=== PATIENT | female | born 2000 | race Caucasian/White ===

== ENCOUNTER 2020-10-01 21:58 | Emergency (ER) | payer MEDICAID, SELFPAY ==
[2020-10-01 22:13] VITALS: BP 107/71; PULSE 113; RESP 14; TEMP 38.2; O2SAT 99; BMI 20.7
--- NOTE | 2020-10-01 22:42 | ED_ITS ---
HPI - Female Genitourinary General: Chief complaint: Urogenital-Female Stated complaint: SEEN AT CLINIC EARLIER, PAIN WORSE, STARTED BLEED Time Seen by Provider: 10/01/20 22:11 Source: patient Mode of arrival: ambulatory Limitations: no limitations History of Present Illness: HPI Narrative: 20-year-old female patient presents to the emergency department with complaints of fever and lower abdominal and right flank pain. She reports 3 to 4-day history of dysuria. History of urinary tract infections with previous infection 3 to 4 months ago. Last menstrual period 2020. Reports menstrual cycles are normally regular. She went to her primary care physician's office today due to lower abdominal pain, fever and urinary symptoms. She was treated for urinary tract infection with Cipro. She states has received 2 doses of the antibiotic without improvement. She remains with fever, reports occasional nausea, she was tested for Covid today and results remain pending. She denies cough congestion. She also reports abnormal vaginal discharge that started today. She states that it was the starting of her menstrual cycle, is only present when she wipes. MD elicited complaint: dysuria, UTI , vaginal discharge and pelvic pain Pertinent past history: recurrent UTIs Onset (ago): day(s) (3-4) Location of symptoms: suprapubic and other (rt flank) Severity: moderate Female Urogenital Radiation: Suprapubic Consistency: intermittent and progressively worsening Vaginal discharge: yellow Vaginal bleeding: scant Urinary symptoms: Dysuria, Flank Pain, Foul Smelling Urine and Frequency Exacerbating factors: urination Associated symptoms: Reports abdominal pain, fevers/chills, nausea, vaginal bleeding and vaginal discharge; Deny headache(s) Treatment prior to arrival: other (Antibiotics) Sexual activity: Yes Possible : unsure if Review of Systems General: Reports: 10 or more systems reviewed and unremarkable except in HPI and below Const: Denies: fever(s), chills or diaphoresis Eyes: Denies: blurry vision or eye redness ENMT: Denies: throat pain, dental pain or disequilibrium Card: Denies: chest pain, palpitations or irregular heart rhythm Resp: Denies: dyspnea, productive cough, non-productive cough or wheezing GI: Reports: abdominal pain and nausea; Denies: vomiting, hematemesis, heartburn, diarrhea, constipation, bloating, pain on defecation, rectal itching or change in stool character : Reports: flank pain, dysuria, urinary urgency, vaginal bleeding, vaginal discharge, irregular period and pelvic pain; Denies: urinary incontinence Musc: Denies: neck pain, back pain, joint pain or joint warmth Skin/Breast: Denies: rash or pruritus Neuro: Denies: headache(s), weakness in extremities or behavioral changes Psych: Denies: anxiety or depression Get/Lymph: Denies: easy bruising PFSH ED PFSH: Medical History UTI (urinary tract infection) Physical Exam Const: COMMON NORMALS: no acute distress, patient oriented x3, healthy appearing, alert and well nourished GENERAL APPEARANCE: cooperative, well kempt, well developed and well hydrated NUTRITIONAL APPEARANCE: thin ORIENTATION/CONSCIOUSNESS: Yes awake, Yes oriented to person, Yes oriented to place and Yes oriented to time HENMT: COMMON NORMALS: normocephalic, atraumatic, Normal external nose present and moist oral mucous membranes HEAD & SCALP: normal to inspection, normocephalic and atraumatic FACE & SINUS: normal facial exam and face symmetric NOSE: Normal external nose present MOUTH: Normal oral and palatal mucosa present, lip normal and tongue normal Eye: COMMON NORMALS: Equal, round and reactive pupils present and EOMs intact bilaterally GENERAL EYE: appearance normal, both eyes and all related structures PUPIL: Yes Equal, round and reactive pupils present Neck/C-Spine: COMMON NORMALS: full ROM, no lymphadenopathy, supple and no meningeal signs GENERAL: Yes normal visual inspection and Yes trachea midline CERVICAL SPINE: Yes cervical ROM normal Lymph: LYMPHATIC: no lymphadenopathy noted Chest: COMMONS NORMALS: normal inspection of the chest and normal palpation of entire chest wall Resp: COMMON NORMALS: normal respiratory effort, No retractions, No use of accessory muscles and clear to auscultation bilaterally EFFORT & INSPECTION: Yes able to speak in complete sentences, No labored and No audible wheezes AUSCULTATION: clear to auscultation bilaterally Cardio: COMMON NORMALS: regular rate, regular rhythm, S1 normal heart sound present, S2 normal heart sound present and Peripheral pulses 2+ throughout RATE: regular rate and tachycardic RHYTHM: regular rhythm HEART SOUNDS: S1 normal heart sound present and S2 normal heart sound present PERIPHERAL PULSES: Peripheral pulses 2+ throughout GI: COMMON NORMALS: Normal to inspection, nondistended, normoactive bowel sounds present and Soft to palpation INSPECTION: Yes normal to inspection, No abdominal wall ecchymosis, No abdominal distension and No central obesity AUSCULTATION: Yes normoactive bowel sounds PALPATION: Yes Soft to palpation, No Firmness to palpation present (GI), Yes Tenderness to palpation present (GI) Details: other (suprapublic) and No Rigid due to palpation : COMMON NORMALS: Yes normal external appearance, Yes normal appearance of the vagina, Yes normal bimanual exam and Yes No adnexal tenderness BLADDER/KIDNEY EXAM: Yes bladder normal to palpation and Yes CVA tenderness on the right EXTERNAL FEMALE EXAM: Yes normal appearance of the urethra SPECULUM EXAM - VAGINA: Yes vaginal bleeding and No tissue present in vagina SPECULUM EXAM - CERVIX: Yes Cervical os closed, Yes mucoid cervix, Yes Abnormal cervical discharge present bloody and clear and Yes Cervical tenderness present BIMANUAL EXAM - VAGINA & UTERUS: Yes normal bimanual exam, Yes cervical motion tenderness, Yes Cervical tenderness present, Yes bladder normal to palpation, Yes uterine size normal and Yes uterine mobility normal BIMANUAL EXAM - ADNEXA, OTHER: Yes normal adnexae OB/EXTERNAL & SPECULUM: vaginal bleeding; no tissue noted in vagina Back/Pelvis: COMMON NORMALS: thoracic and lumbar spine normal to inspection, no thoracic nor lumbar tenderness and thoraco-lumbar ROM normal Extremity: COMMON NORMALS: normal to inspection, full ROM, capillary refill normal, no clubbing, cyanosis or edema and no pedal edema GENERAL: Yes normal exam except as noted Neuro: COMMON NORMALS: patient oriented x3 and no focal motor deficits SENSORIUM/ORIENTATION: Yes alert, Yes oriented to person, Yes oriented to place and Yes oriented to time MENINGEAL SIGNS: Yes no meningeal signs SPEECH: speech normal GAIT: Yes Normal gait present MOTOR EXAM: 5/5 motor strength present throughout Psych: COMMON NORMALS: mental status grossly normal, Normal thought process present and cooperative APPEARANCE: Yes well kempt ACTIVITY/MOTOR BEHAVIOR: Yes appropriate eye contact THOUGHT PROCESS: Normal thought process present Skin: COMMON NORMALS: no rashes or lesions noted and turgor normal GENERAL SKIN EXAM: no rashes or lesions noted and turgor normal Course Vital Signs: Vital signs: Vital Signs Temperature 100.7 F H 10/01/20 22:13 Pulse Rate 101 H 03/11/21 00:53 Respiratory Rate 14 10/01/20 22:13 Blood Pressure 107/71 10/01/20 22:13 Pulse Oximetry 97 10/02/20 00:53 MDM - Female MDM Narrative: Medical decision making narrative: 20-year-old female patient presents to the emergency department with several day history of dysuria. Reports onset of fever and chills and not feeling well today. Prescribed Cipro by her primary care for urinary tract infection. She received 2 doses with no improvement. Urinalysis with white blood cells, red blood cells and leukoesterase, CT abdomen pelvis renal stone protocol completed secondary to possible kidney stone or other abdominal etiology due to right flank pain she was experiencing. Right kidney revealed perinephric stranding concerning for pyelonephritis. She received first dose of Rocephin here in the ED. She has not exhibited vomiting. She was able to tolerate p.o. fluids. CBC without elevation of white blood count. Chemistry did reveal slight hypokalemia, potassium replaced with 40 mEq of KCl. hCG was negative. Pelvic exam completed secondary to complaint of lower pelvic pain. Cervical motion tenderness present, she was treated for chlamydia/gonorrhea with 1 g of a azithromycin and Rocephin. She did not want to stay in the hospital, she has requested to go home. She did not exhibit vomiting during her stay, she was advised to follow- up with her primary care provider in 2 to 3 days to ensure she is improving. She is advised if she developed nausea vomiting with use of Zofran, she would need to return to the ED. Lab Data: Labs: Lab Results 10/01/20 10/01/20 10/01/20 Range/Units 22:10 22:50 22:50 WBC 11.4 (4.5-13.0) 10^3/ uL RBC 4.69 (4.1-5.3) 10^6/u L Hgb 13.9 (11.5-15.3) g/dL Hct 41.7 (37.0-47.0) % MCV 88.9 (81-99) fL MCH 29.6 (28.0-34.0) pg MCHC 33.3 (30.0-36.0) g/dL RDW 12.5 (12.1-15.1) % Plt Count 178 (130-400) 10^3/c mm MPV 9.8 (7.4-10.4) fL Neut % (Auto) 76.9 % Lymph % (Auto) 10.7 % Amador % (Auto) 11.3 % Eos % (Auto) 0.3 % Baso % (Auto) 0.3 % Neut # (Auto) 8.75 H (1.8-8.0) 10^3/u L Lymph # (Auto) 1.2 L (1.5-6.5) 10^3/u L Amador # (Auto) 1.3 H (0.2-0.9) 10^3/u L Eos # (Auto) 0.0 (0.0-0.8) 10^3/u L Baso # (Auto) 0.0 (0.0-0.1) 10^3/u L Nucleated RBC % (a uto) 0 % Nucleated RBCs # 0.0 /100WBC Sodium 135 L (136-145) mmol/L Potassium 3.3 L (3.5-5.1) mmol/L Chloride 99 (98-107) mmol/L Carbon Dioxide 26 (22-29) mmol/L Anion Gap 13.3 (5-19) BUN 4 L (6-20) mg/dL Creatinine 0.8 (0.5-0.9) mg/dL GFR Calculation 91.4 (90-130) mL/min Glucose 93 (65-115) mg/dL Calculated Osmolal ity 277 L (285-295) mOsm/k g Calcium 8.1 L (8.5-10.5) mg/dL Total Bilirubin 0.3 (0.15-1.2) mg/dL AST 19 (0-32) U/L ALT 22 (0-33) U/L Alkaline Phosphata se 67 (35-105) IU/L Total Protein 6.8 (6.6-8.7) g/dL Albumin 3.6 (3.5-5.2) g/dL Globulin 3.2 (1.3-4.6) g/dL HCG, Qual (Negative) Urine Color Yellow (Yellow) Urine Appearance Sl hazy (CLEAR) Urine pH 8 H (5-7) Ur Specific Gravit y 1.005 (1.005-1.030) Urine Protein Neg (Negative) Urine Glucose (UA) Norm (Normal) Urine Ketones Negative (Negative) Urine Blood 3+ H (Negative) Urine Nitrate Negative (Negative) Urine Bilirubin Neg (Negative) Prot Sulfosalicyli c Acd Negative (Negative) Urine Urobilinogen Norm (Negative) mg/dL Ur Leukocyte Keerthi ase 2+ H (Negative) Urine RBC 0-4 H (0-2) /hpf Urine WBC 40-55 H (0-5) /hpf Ur Squamous Epith Cells 10-15 H (0-5) /hpf Amorphous Sediment Not Reportable Urine Bacteria 1+ H (NONE) /hpf 10/01/20 Range/Units 22:50 WBC (4.5-13.0) 10^3/ uL RBC (4.1-5.3) 10^6/u L Hgb (11.5-15.3) g/dL Hct (37.0-47.0) % MCV (81-99) fL MCH (28.0-34.0) pg MCHC (30.0-36.0) g/dL RDW (12.1-15.1) % Plt Count (130-400) 10^3/c mm MPV (7.4-10.4) fL Neut % (Auto) % Lymph % (Auto) % Amador % (Auto) % Eos % (Auto) % Baso % (Auto) % Neut # (Auto) (1.8-8.0) 10^3/u L Lymph # (Auto) (1.5-6.5) 10^3/u L Amador # (Auto) (0.2-0.9) 10^3/u L Eos # (Auto) (0.0-0.8) 10^3/u L Baso # (Auto) (0.0-0.1) 10^3/u L Nucleated RBC % (a uto) % Nucleated RBCs # /100WBC Sodium (136-145) mmol/L Potassium (3.5-5.1) mmol/L Chloride (98-107) mmol/L Carbon Dioxide (22-29) mmol/L Anion Gap (5-19) BUN (6-20) mg/dL Creatinine (0.5-0.9) mg/dL GFR Calculation (90-130) mL/min Glucose (65-115) mg/dL Calculated Osmolal ity (285-295) mOsm/k g Calcium (8.5-10.5) mg/dL Total Bilirubin (0.15-1.2) mg/dL AST (0-32) U/L ALT (0-33) U/L Alkaline Phosphata se (35-105) IU/L Total Protein (6.6-8.7) g/dL Albumin (3.5-5.2) g/dL Globulin (1.3-4.6) g/dL HCG, Qual Negative (Negative) Urine Color (Yellow) Urine Appearance (CLEAR) Urine pH (5-7) Ur Specific Gravit y (1.005-1.030) Urine Protein (Negative) Urine Glucose (UA) (Normal) Urine Ketones (Negative) Urine Blood (Negative) Urine Nitrate (Negative) Urine Bilirubin (Negative) Prot Sulfosalicyli c Acd (Negative) Urine Urobilinogen (Negative) mg/dL Ur Leukocyte Keerthi ase (Negative) Urine RBC (0-2) /hpf Urine WBC (0-5) /hpf Ur Squamous Epith Cells (0-5) /hpf Amorphous Sediment Urine Bacteria (NONE) /hpf Imaging Data: Other Xray: Radiologist's impression: [employer] [address] [address] Scan Report Signed Patient: Koffi Haro Unit #: [id number] : 2000 Age/Sex: 20 / F ADM Date: 10/01/20 Loc: ER Room/Bed: Attending Dr: Ordering Provider/Ordering MD: Avril Benson Date of Service: 10/01/20 Procedure(s): CT kidney stone [id number] Accession Number(s): [id number] Report Number: [id number] PROCEDURE INFORMATION: Exam: CT Abdomen And Pelvis Without Contrast Exam date and time: 10/01/2020 11:17 PM Age: 20 years old Clinical indication: Abdominal pain; Patient HX: Right flank pain x 3 days; Additional info: RT flank pain/fever TECHNIQUE: Imaging protocol: Computed tomography of the abdomen and pelvis without contrast. Radiation optimization: All CT scans at this facility use at least one of these dose optimization techniques: automated exposure control; mA and/or kV adjustment per patient size (includes targeted exams where dose is matched to clinical indication); or iterative reconstruction. COMPARISON: US OB >14 Weeks [id number] 11/14/2017 10:40 AM RADIATION DOSE METRICS: Total DLP (mGy-cm): 569.58 FINDINGS: Lungs: The lung bases are clear. No effusion Liver: Normal. No mass. Gallbladder and bile ducts: No wall thickening, pericholecystic fluid or stones. Pancreas: Normal. No ductal dilation. Spleen: Normal. No splenomegaly. Adrenal glands: Normal. No mass. Kidneys and ureters: Enlargement of the right kidney with perinephric fat stranding. Stomach and bowel: Unremarkable. No obstruction. No mucosal thickening. Appendix: No evidence of appendicitis. Intraperitoneal space: Tiny amount of free fluid in the pelvis. Vasculature: Unremarkable. No abdominal aortic aneurysm. Lymph nodes: Unremarkable. No enlarged lymph nodes. Urinary bladder: Unremarkable as visualized. Reproductive: Unremarkable as visualized. Bones/joints: Unremarkable. No acute fracture. Soft tissues: Unremarkable. CT/CT kidney stone [id number] IMPRESSION: Enlargement of the right kidney with perinephric fat stranding, concerning for pyelonephritis. Radiation Dose CTDIVOL = (mGy): DLP = 569.58 (mGy-cm) Dictated By: Edson Foy Signed By: Edson Foy Signed Date/Time: 10/02/20 0002 DD/ 0001 Discharge Plan Discharge Patient Disposition: Home Clinical Impression: Acute flank pain UTI (urinary tract infection) Qualifiers: Urinary tract infection type: acute pyelonephritis Qualified Code(s): N10 - Acute pyelonephritis Condition: Stable Prescriptions: New cefdinir 300 mg capsule 300 mg PO BID 10 Days Qty: 20 RF: 0 hydrocodone-acetaminophen 5-325 mg tablet 1 tab PO Q4H PRN (Reason: pain) Qty: 7 RF: 0 Zofran 4 mg tablet 4 mg PO Q4H 5 Days Qty: 14 RF: 0 Discontinued ciprofloxacin HCl 500 mg tablet 500 mg PO BID 5 Days Qty: 10 RF: 0 Discharge Orders: Discharge ED (Routine); Ordered 10/02/20 Ordered By: Avril Benson Referrals: Elvi Wong NP [Primary Care Provider] - Discharge Diet: Usual diet Discharge Activity: Limit activity as instructed Patient Instructions: Urinary Tract Infection in Women (ED), Abdominal Pain (ED), Opioid Safety Activity Restrictions/Additional Instructions: Take antibiotics until gone, even if better Stop Cipro as new antibiotic has been prescribed Return to the emergency department if you develop vomiting or continued fever despite use of Zofran and Omnicef Follow-up with your primary care provider in 2 to 3 days to ensure you are im proving Drink plenty of fluids to remain hydrated May take Tylenol as needed for pain Stand Alone Forms: Work/School Release Coding Level of Care Code ED Ultrasound Spec for [place] Fwd Exam Comprehensive
[2020-10-01 22:59] LABS: Basophils % 0.3 %; Eosinophils % 0.3 %; Hematocrit 41.7 % (37.0-47.0); Hemoglobin 13.9 g/dL (11.5-15.3); Lymphocytes # 1.2 10^3/uL (1.5-6.5); Lymphocytes % 10.7 %; Mean Corpuscular HGB Conc 33.3 g/dL (30.0-36.0); Mean Corpuscular Hemoglobin 29.6 pg (28.0-34.0); Mean Corpuscular Volume 88.9 fL (81-99); Mean Platelet Volume 9.8 fL (7.4-10.4); Monocytes # 1.3 10^3/uL (0.2-0.9); Monocytes % 11.3 %; Neutrophils # 8.75 10^3/uL (1.8-8.0); Neutrophils % 76.9 %; Nucleated Red Blood Cells % 0 %; Platelet Count 178 10^3/cmm (130-400); Red Blood Count 4.69 10^6/uL (4.1-5.3); Red Cell Distribution Width 12.5 % (12.1-15.1); White Blood Count 11.4 10^3/uL (4.5-13.0)
[2020-10-01 23:10] LABS: Add Urine Microscopic? YES; Bacteria Urine 1+ /hpf; Bilirubin Urine Neg (Negative); Blood Urine 3+ (Negative); Glucose Urine UA Norm (Normal); Ketones Urine Negative (Negative); Leukocyte Esterase Urine 2+ (Negative); Nitrate Urine Negative (Negative); Protein Urine Neg (Negative); RBC Urine 0-4 /hpf (0-2); Specific Gravity, Urine 1.005 (1.005-1.030); Sulfosalicylic Acid Urine Negative (Negative); Urine Appearance SL Hazy (CLEAR); Urine Color Yellow (Yellow); Urobilinogen Urine Norm (Negative); WBC Urine 40-55 /hpf (0-5); pH Urine 8 (5-7)
[2020-10-01 23:13] LABS: HCG, Serum Qual Negative (Negative)
--- NOTE | 2020-10-01 23:16 | CTR_ITS ---
PROCEDURE INFORMATION: Exam: CT Abdomen And Pelvis Without Contrast Exam date and time: 10/01/2020 11:17 PM Age: 20 years old Clinical indication: Abdominal pain; Patient HX: Right flank pain x 3 days; Additional info: RT flank pain/fever TECHNIQUE: Imaging protocol: Computed tomography of the abdomen and pelvis without contrast. Radiation optimization: All CT scans at this facility use at least one of these dose optimization techniques: automated exposure control; mA and/or kV adjustment per patient size (includes targeted exams where dose is matched to clinical indication); or iterative reconstruction. COMPARISON: US OB >14 Weeks [id number] 11/14/2017 10:40 AM RADIATION DOSE METRICS: Total DLP (mGy-cm): 569.58 FINDINGS: Lungs: The lung bases are clear. No effusion Liver: Normal. No mass. Gallbladder and bile ducts: No wall thickening, pericholecystic fluid or stones. Pancreas: Normal. No ductal dilation. Spleen: Normal. No splenomegaly. Adrenal glands: Normal. No mass. Kidneys and ureters: Enlargement of the right kidney with perinephric fat stranding. Stomach and bowel: Unremarkable. No obstruction. No mucosal thickening. Appendix: No evidence of appendicitis. Intraperitoneal space: Tiny amount of free fluid in the pelvis. Vasculature: Unremarkable. No abdominal aortic aneurysm. Lymph nodes: Unremarkable. No enlarged lymph nodes. Urinary bladder: Unremarkable as visualized. Reproductive: Unremarkable as visualized. Bones/joints: Unremarkable. No acute fracture. Soft tissues: Unremarkable. CT/CT kidney stone [id number] IMPRESSION: Enlargement of the right kidney with perinephric fat stranding, concerning for pyelonephritis. Radiation Dose CTDIVOL = (mGy): DLP = 569.58 (mGy-cm)
[2020-10-01 23:27] LABS: Alanine Aminotransferase 22 U/L (0-33); Albumin Level 3.6 g/dL (3.5-5.2); Alkaline Phosphatase 67 IU/L (35-105); Anion Gap 13.3 (5-19); Aspartate Amino Transferase 19 U/L (0-32); Blood Urea Nitrogen 4 mg/dL (6-20); Calcium 8.1 mg/dL (8.5-10.5); Carbon Dioxide 26 mmol/L (22-29); Chloride 99 mmol/L (98-107); Globulin 3.2 g/dL (1.3-4.6); Glomerular Filtration Rate 91.4 mL/min (90-130); Glucose 93 mg/dL (65-115); Osmolality Calculated 277 mOsm/kg (285-295); Potassium 3.3 mmol/L (3.5-5.1); Sodium 135 mmol/L (136-145); Total Bilirubin 0.3 mg/dL (0.15-1.2); Total Protein 6.8 g/dL (6.6-8.7)
[2020-10-01] MEDS: sodium chloride 0.9% 500 ML 999 ML IV (23:29)
[2020-10-01] MEDS: cefTRIAXone 1,000 MG in sodium chloride 0.9% (plus) 50 ML 100 MG IV (23:30)
[2020-10-01] MEDS: azithromycin 250 mg Tablet 1000 MG PO (23:31)
[2020-10-02] MEDS: sodium chloride 0.9% 500 ML 999 ML IV (00:25)
[2020-10-02] MEDS: ketorolac 30 mg/mL INJ 15 MG IVP (00:25)
[2020-10-02] MEDS: ondansetron 4 MG Tablet PO (00:47)
[2020-10-02] MEDS: potassium chloride ER 20 mEq Tablet 40 MEQ PO (00:48)
[2020-10-02] MEDS: HYDROcodone-acetaminophen 5-325 mg Tablet 1 TAB PO (00:48)
[2020-10-02 00:52] VITALS: PULSE 114; O2SAT 97
[2020-10-02 00:53] VITALS: PULSE 101; O2SAT 97
--- NOTE | 2020-10-03 08:46 | PC.NURSE ---
left message for pt to call ER and get test results
== END 2020-10-02 00:56 | disposition home or self-care (01) ==
PROVIDERS: Emergency Provider Nurse Practitioner Family; PCP Nurse Practitioner Family
DX: N10 Acute pyelonephritis (principal); Z87.440 Personal history of urinary (tract) infections
CPT/HCPCS: 74176; 80053; 81000; 81001; 81025; 84703; 85025; 87210; 87491; 87591; 87635; 87661; 96365; 96375; 99284; E0352; J0696; J1885; J7040; Q0144; Q0162

== ENCOUNTER 2021-11-13 13:24 | Emergency (ER) | payer MEDICAID, SELFPAY ==
[2021-11-13 13:57] VITALS: BP 124/65; PULSE 72; RESP 16; TEMP 36.4; O2SAT 100; BMI 20.3
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
[2021-11-13 16:12] VITALS: BP 180/67; PULSE 89; RESP 20; O2SAT 98
== END 2021-11-13 16:10 | disposition home or self-care (01) ==
PROVIDERS: Emergency Provider Physician Assistant
DX: S00.83XA Contusion of other part of head, initial encounter (principal); Y04.2XXA Assault by strike against or bumped into by another person, initial encounter
CPT/HCPCS: 70450; 70486; 70491; 72072; 72100; 99282; Q9967

== ENCOUNTER → 2022-12-29 10:22 | Outpatient (BNVA) | payer MEDICAID, SELFPAY | PROVIDERS: Visit Provider Obstetrics & Gynecology | DX: Z34.90 Encounter for supervision of normal pregnancy, unspecified, unspecified trimester (principal) | CPT/HCPCS: 80307; 81000; 85027; 86592; 86762; 86803; 86850; 86900; 87077; 87086; 87184; 87340; 87806 ==

== ENCOUNTER → 2023-01-26 15:10 | Outpatient (BNVA) | payer MEDICAID, SELFPAY | PROVIDERS: Visit Provider Obstetrics & Gynecology | DX: Z34.90 Encounter for supervision of normal pregnancy, unspecified, unspecified trimester (principal) | CPT/HCPCS: 81000 ==

== ENCOUNTER → 2023-02-02 14:28 | Outpatient (BNVA) | payer MEDICAID, SELFPAY | PROVIDERS: Visit Provider Obstetrics & Gynecology | DX: Z36.87 Encounter for antenatal screening for uncertain dates (principal) | CPT/HCPCS: 76805 ==

== ENCOUNTER → 2023-02-09 13:30 | Outpatient (BNVA) | payer MEDICAID, SELFPAY | PROVIDERS: Visit Provider Obstetrics & Gynecology | DX: Z34.90 Encounter for supervision of normal pregnancy, unspecified, unspecified trimester (principal) | CPT/HCPCS: 81000 ==

== ENCOUNTER → 2023-02-22 11:38 | Outpatient (BNVA) | payer MEDICAID, SELFPAY | PROVIDERS: Visit Provider Obstetrics & Gynecology | DX: Z34.80 Encounter for supervision of other normal pregnancy, unspecified trimester (principal) | CPT/HCPCS: 81000; 82950; 85025 ==

== ENCOUNTER → 2023-03-08 10:47 | Outpatient (BNVA) | payer MEDICAID, SELFPAY | PROVIDERS: Visit Provider Obstetrics & Gynecology | DX: Z34.80 Encounter for supervision of other normal pregnancy, unspecified trimester (principal) | CPT/HCPCS: 81000 ==

== ENCOUNTER → 2023-03-22 10:59 | Outpatient (BNVA) | payer MEDICAID, SELFPAY | PROVIDERS: Visit Provider Obstetrics & Gynecology | DX: Z34.80 Encounter for supervision of other normal pregnancy, unspecified trimester (principal) | CPT/HCPCS: 81000 ==

== ENCOUNTER → 2023-04-06 10:17 | Outpatient (BNVA) | payer MEDICAID, SELFPAY | PROVIDERS: Visit Provider Obstetrics & Gynecology | DX: Z34.80 Encounter for supervision of other normal pregnancy, unspecified trimester (principal) | CPT/HCPCS: 81000; 87081 ==

== ENCOUNTER → 2023-04-11 08:40 | Outpatient (BNVA) | payer MEDICAID, SELFPAY | PROVIDERS: Visit Provider Obstetrics & Gynecology | DX: Z34.80 Encounter for supervision of other normal pregnancy, unspecified trimester (principal) | CPT/HCPCS: 76816; 76820; 81000 ==

== ENCOUNTER 2023-04-15 20:23 | Outpatient (CLI) | payer MEDICAID, SELFPAY ==
[2023-04-15 20:15] VITALS: BMI 24.5
[2023-04-15 20:40] VITALS: BP 120/55; PULSE 84; TEMP 36.1
[2023-04-15 21:00] VITALS: BP 115/58; PULSE 77
== END 2023-04-15 21:11 | disposition home or self-care (01) ==
LOC: OPOB 20:23 → OBGYN 20:24
PROVIDERS: Visit Provider Obstetrics & Gynecology
DX: O26.899 Other specified pregnancy related conditions, unspecified trimester (principal); Z3A.00 Weeks of gestation of pregnancy not specified
CPT/HCPCS: 59025; 99211

== ENCOUNTER 2023-04-19 09:09 | Inpatient (IN) | payer MEDICAID, SELFPAY ==
[2023-04-19] VITALS (44 sets, daily range): BP systolic 99–136; BP diastolic 51–71; PULSE 62–86; RESP 15–17; TEMP 36.2–36.8; O2SAT 96–98; BMI 24.3
[2023-04-19 11:00] LABS: Mean Corpuscular HGB Conc 33.1 g/dL (30-55); Mean Corpuscular Hemoglobin 29.3 pg (27-33); Mean Corpuscular Volume 88.4 fl (85-98); Mean Platelet Volume 9.5 fL (7.4-10.4); Platelet Count 253 10^3/cmm (157-399); Red Blood Count 3.62 10^6/uL (3.85-5.65); White Blood Count 9.12 10^3/uL (3.29-11.43)
[2023-04-19 11:01] LABS: Basophils % 0.2 %; Eosinophils # 0.1 10^3/uL (0.0-0.8); Eosinophils % 1.2 %; Lymphocytes # 1.8 10^3/uL (0.8-4.8); Lymphocytes % 19.7 %; Monocytes # 0.8 10^3/uL (0.2-0.9); Monocytes % 8.7 %; Neutrophils % 69.1 %; Nucleated Red Blood Cells % 0 %
[2023-04-19] MEDS: dextrose 5%-lactated ringers 1,000 ML 125 ML IV (11:15)
[2023-04-19] MEDS: oxytocin 30 UNIT/500 ML BAG IV (11:15)
--- NOTE | 2023-04-19 14:47 | ANES.PREANE2 ---
Pre-Anesthetic Assessment Height/Weight: Height 1.7 m Weight 70.307 kg Temp Pulse BP O2 Del Method 97.2 F L 75 103/59 Room Air 04/19/23 14:39 04/19/23 14:33 04/19/23 14:33 04/19/23 09:09 Familial anesthetic complications: None Was Beta Carolyn taken within 24 hours: N/A Was Clonidine taken within 24 hours: N/A Last Intake: 08:00 Social Tobacco (7 a day) and No alcohol Exam alert, oriented x 3, clear to auscultation bilaterally and regular rate & rhythm Airway Submandibular: within normal limits Cervical ROM: within normal limits Mallampati: Class III Dentition: full History/ROS No significant history except as noted and No significant complaints Pulmonary None reported CV/HEM Anemia and None reported Urinary Tract Infection Hepatic None reported GI Gastroesophageal Reflux Disease Metabolic None reported Musc/skel None reported Neuropsych None reported Anesthetic Plan ASA status: 2 Anesthesia: Anesthesia Evaluation Medications/Allergies Allergies Allergy/AdvReac Type Severity Reaction Status Date / Time No Known Allergies Allergy Verified 04/15/23 21:06 Current Medications Generic Name Dose Route Start Last Admin Trade Name Freq PRN Reason Stop Dose Admin Dextrose/Lactated Ringer's 1,000 mls @ 125 mls/hr 04/19/23 10:45 04/19/23 11:15 Dextrose 5%-Lactated Ringers IV 125 mls/hr .Q8H ZION Administration Oxytocin 30 unit in 500 mls @ 1 mls/hr 04/19/23 10:45 04/19/23 12:54 Pitocin IV 5 milliunit/min .Q24H ZION 5 mls/hr Titration Protocol 1 MILLIUNIT/MIN PFSH Anesthesia Medical History UTI (urinary tract infection) Family History Grandmother CAD (coronary artery disease) Chronic kidney disease (CKD) Cancer Ovarian Diabetes Father CAD (coronary artery disease) Diabetes Grandfather Diabetes Stroke Denies family history of Psychiatric illness Lung disease Hypertension Female Reproductive History : 2 Data Anesthesia 04/19/23 10:05 Short CBC 04/19/23 Range/Units 10:05 WBC 9.12 (3.29-11.43) 10^3/uL Hgb 10.60 L (11.27-16.99) g/dL Hct 32.0 L (36-47) % MCV 88.4 (85-98) fl Plt Count 253 (157-399) 10^3/cmm Neut % (Auto) 69.1 % Neut # (Auto) 6.30 (1.8-7.7) 10^3/uL Cardiac Studies: No Data to Display
[2023-04-19] MEDS: fentaNYL 50 mcg/mL INJ 2mL IVP (18:36)
[2023-04-19] MEDS: lactated ringers 1,000 ML 999 ML IV (18:56)
--- NOTE | 2023-04-19 20:10 | P.HP_ITS ---
Providers/Chief Complaint Admitting Physician: Dony Garay MD Primary TRAVELING REPRESENTATIVE: Dony Garay MD Chief Complaint: IOL HPI TRAVELING REPRESENTATIVE History of Present Illness April 19, 2023, 1005 OB ADMIT NOTE 22 y.o. LMP unknown Had ob sono done at [facility] by sono April 28, 2023 At 38 w 5 d Admitted for labor induction due to small for gestational age fetus, possible IUGR Fundal height has been lagging behind gestational age OB sono done April 11, 2023 showed growth to be 5% of expected for gestational age Fetus has been reassuring with reactive NST and normal amniotic fluid index no c/o + active movements POBHx: , 5 lbs 15 oz, uncomplicated SHx: + marijuana + cigarettes Present Details : 2 Para: 1 Labs Rubella: Immune RPR: Negative GBS: Negative Medications/Allergies Allergies Allergy/AdvReac Type Severity Reaction Status Date / Time No Known Allergies Allergy Verified 04/15/23 21:06 PFSH TRAVELING REPRESENTATIVE PFSH: Medical History UTI (urinary tract infection) Family History Grandmother CAD (coronary artery disease) Chronic kidney disease (CKD) Cancer Ovarian Diabetes Father CAD (coronary artery disease) Diabetes Grandfather Diabetes Stroke Denies family history of Psychiatric illness Lung disease Hypertension History History History 2 Term 1 0 Miscarriages/Ectopic 0 Living Children 1 Care NISHA Calculator Estimated Delivery Date Method Current WG Current Estimate 04/28/23 Manual 38w 5d Vitals/I&O/Wt Last Vital Signs Temp 97.3 F L 04/19/23 17:54 Pulse 72 04/19/23 21:10 Resp 17 04/19/23 18:36 BP 120/69 04/19/23 21:10 O2 Del Method Room Air 04/19/23 09:09 04/19/23 04/19/23 04/20/23 14:59 22:59 06:59 Intake Total 4.850 / 4.850 36.85 / 41.700 Balance 4.850 / 4.850 36.85 / 41.700 Weight last 48 hrs Weight 155 lb Physical Exam Narrative: Weight 155 lbs; 5?7? VS normal Awake, alert, comfortable Lungs: clear Cor: RRR FH 34 cm FHTs normal Cx: 2 cm / 50% / -2 / posterior Data 04/19/23 10:05 A&P Assessment and plan (1) Small for gestational age fetus: 38 w 5 d Fundal height less than gestational age OB sono done 04-11-23 showed SGA fetus, possible IUGR Now admitted for labor induction (2) Encounter for induction of labor: plan start pitocin Attestations Medical Necessity Statement*: patient at 38 w 5 d, with small for gestational age fetus, admitted for labor induction Coding Level of Care Code Acute Code for Chg Fwd Diagnoses Small for gestational age fetus Encounter for induction of labor Z34.90 Time Spent (min) 40
--- NOTE | 2023-04-19 20:10 | PM.OBGYPN ---
FRAME GATE MORTISER OPERATOR Subjective Subjective: Interval history: April 19, 2023, 1809 DELIVERY NOTE , vigorous female Placenta grossly appeared small Normal cord Cord gases and blood obtained No episiotomy / lacerations EBL: 300 cc No complications Labor: Station: 0 Amniotic Membrane Status: Ruptured Monitor Mode: External Contraction Pattern: Irregular Status: Category I Vitals/I&O/Wt Last Vital Signs Temp 97.3 F L 04/19/23 17:54 Pulse 72 04/19/23 21:10 Resp 17 04/19/23 18:36 BP 120/69 04/19/23 21:10 O2 Del Method Room Air 04/19/23 09:09 04/19/23 04/19/23 04/20/23 14:59 22:59 06:59 Intake Total 4.850 / 4.850 36.85 / 41.700 Balance 4.850 / 4.850 36.85 / 41.700 Weight last 48 hrs Weight 155 lb Data 04/19/23 10:05 A&P Assessment and plan (1) Vaginal delivery: plan care Attestations Medical Necessity Statement*: patient admitted for induction of labor at 38 w 5 d with zgqcq-evj-piwstdwdmeu-age fetus, now with vaginal delivery Coding Level of Care Code Acute Code for Chg Fwd Diagnoses Vaginal delivery O80 Time Spent (min) 60
--- NOTE | 2023-04-19 20:10 | PM.DELIVERY ---
Delivery Note: Date of delivery: April 19, 2023 Pre-delivery diagnoses: 38 w 5 d ctmcf-kbj-hugtllpzehd-age fetus induction of labor Post-delivery diagnoses: same as above vaginal delivery Procedure: induction of labor vaginal delivery Op report anesthesia: None Delivering Physician: Dony Garay MD Estimated blood loss (mL): 300 Findings: , vigorous female Placenta grossly appeared small Normal cord Cord gases and blood obtained No episiotomy / lacerations EBL: 300 cc No complications Pre-Delivery Course: normal labor induction course with pitocin Delivery: vaginal delivery Post-Delivery Status: stable History History History 2 Term 1 0 Miscarriages/Ectopic 0 Living Children 1 A&P Assessment and plan (1) Vaginal delivery: plan care Coding Level of Care Code Acute Code for Chg Fwd Diagnoses Vaginal delivery O80 Time Spent (min) 60
[2023-04-19 22:25] LABS: Amphetamines Screen Urine Negative (Negative); Barbiturates Screen Urine Negative (Negative); Benzodiazepines Screen Urine Negative (Negative); Cocaine Screen Urine Negative (Negative); Opiate Screen Urine Negative (Negative); PCP Screen Urine Negative (Negative); THC Screen Urine Positive (Negative)
[2023-04-19] MEDS: benzocaine-menthol 78 gm Canister 1 SPRAY TOPICAL (23:02)
[2023-04-19] MEDS: lanolin oint 7 gm 1 APPLIC TOPICAL (23:03)
[2023-04-20 00:45] VITALS: BP 108/69; PULSE 72; RESP 16; TEMP 36.7; O2SAT 98
[2023-04-20] MEDS: acetaminophen 325 mg Tablet 650 MG PO (02:01)
[2023-04-20 03:45] VITALS: BP 112/76; PULSE 68; RESP 16; TEMP 36.8; O2SAT 98
[2023-04-20] MEDS: HYDROcodone-acetaminophen 5-325 mg Tablet PO ×2 (03:56→10:25)
[2023-04-20 05:45] VITALS: BP 114/54; PULSE 70; RESP 15; TEMP 36.4; O2SAT 96
[2023-04-20 08:49] LABS: Hematocrit 32.9 % (36-47); Mean Corpuscular HGB Conc 33.1 g/dL (30-55); Mean Corpuscular Volume 90.6 fl (85-98); Mean Platelet Volume 9.5 fL (7.4-10.4); Platelet Count 230 10^3/cmm (157-399); Red Blood Count 3.63 10^6/uL (3.85-5.65); White Blood Count 13.69 10^3/uL (3.29-11.43)
[2023-04-20] MEDS: ibuprofen 800 mg tablet PO ×3 (09:31→21:33)
[2023-04-20] MEDS: docusate sodium 100 mg Capsule PO (09:31)
[2023-04-20] MEDS: prenatal vitamin Capsule 1 CAP PO (09:31)
[2023-04-20 10:20] VITALS: BP 117/64; PULSE 73; RESP 17
--- NOTE | 2023-04-20 11:05 | PM.OBGYDC ---
Discharge Providers MENTALLY IMPAIRED TEACHER Date of Admission: 04/19/23 09:09 Date of Discharge: 04/20/23 Attending Provider at Admission: Dony Garay MD Attending Provider at Discharge: Dony Garay MD Consults: none Primary MENTALLY IMPAIRED TEACHER: Dony Garay MD Diagnoses at Discharge Discharge Diagnosis (1) Vaginal delivery: Details from hospital stay: patient at 38 w 5 d with aiaal-hgc-mzfdbhcofsi age fetus admitted for induction of labor received pitocin induction had vaginal delivery without any complications normal course Status: Resolved Reason for Visit Reason for Visit: IOL Information Peripartum Data: Delivery Method: Vaginal Laceration description: None Episiotomy description: None complications: none Physical Exam Const: COMMON NORMALS: no acute distress, average body habitus, patient oriented x3 and healthy appearing Resp: COMMON NORMALS: normal respiratory effort, No use of accessory muscles and clear to auscultation bilaterally AUSCULTATION: clear to auscultation bilaterally Cardio: COMMON NORMALS: regular rate and regular rhythm RATE: regular rate RHYTHM: regular rhythm GI: COMMON NORMALS: Normal to inspection, nondistended, normoactive bowel sounds present, Soft to palpation and non-tender PALPATION: Yes Soft to palpation Neuro: COMMON NORMALS: patient oriented x3 History History History 2 Term 1 0 Miscarriages/Ectopic 0 Living Children 1 Discharge Data Studies Completed and Pending Laboratory Results WBC 13.69 10^3/uL (3.29-11.43) H 04/20/23 08:30 RBC 3.63 10^6/uL (3.85-5.65) L 04/20/23 08:30 Hgb 10.90 g/dL (11.27-16.99) L 04/20/23 08:30 Hct 32.9 % (36-47) L 04/20/23 08:30 MCV 90.6 fl (85-98) 04/20/23 08:30 MCH 30.0 pg (27-33) 04/20/23 08:30 MCHC 33.1 g/dL (30-55) 04/20/23 08:30 RDW 13.0 % (12.1-15.1) 04/20/23 08:30 Plt Count 230 10^3/cmm (157-399) 04/20/23 08:30 MPV 9.5 fL (7.4-10.4) 04/20/23 08:30 Neut % (Auto) 69.1 % 04/19/23 10:05 Lymph % (Auto) 19.7 % 04/19/23 10:05 [place] % (Auto) 8.7 % 04/19/23 10:05 Eos % (Auto) 1.2 % 04/19/23 10:05 Baso % (Auto) 0.2 % 04/19/23 10:05 Neut # (Auto) 6.30 10^3/uL (1.8-7.7) 04/19/23 10:05 Lymph # (Auto) 1.8 10^3/uL (0.8-4.8) 04/19/23 10:05 [place] # (Auto) 0.8 10^3/uL (0.2-0.9) 04/19/23 10:05 Eos # (Auto) 0.1 10^3/uL (0.0-0.8) 04/19/23 10:05 Baso # (Auto) 0.0 10^3/uL (0.0-0.1) 04/19/23 10:05 Nucleated RBC % (auto) 0 % 04/19/23 10:05 Nucleated RBCs # 0.0 /100WBC 04/19/23 10:05 Urine Opiates Screen Negative ng/mL (Negative) 04/19/23 21:58 Ur Barbiturates Screen Negative ng/mL (Negative) 04/19/23 21:58 Ur Phencyclidine Scrn Negative ng/mL (Negative) 04/19/23 21:58 Ur Amphetamines Screen Negative ng/mL (Negative) 04/19/23 21:58 U Benzodiazepines Scrn Negative ng/mL (Negative) 04/19/23 21:58 Urine Cocaine Screen Negative ng/mL (Negative) 04/19/23 21:58 U Marijuana (THC) Screen Positive ng/mL (Negative) H 04/19/23 21:58 Procedures Performed induction of labor vaginal delivery Vitals Last Vital Signs Temp 98.2 F 04/20/23 21:40 Pulse 78 04/20/23 21:40 Resp 16 04/20/23 21:40 BP 110/64 04/20/23 21:40 Pulse Ox 96 04/20/23 05:45 O2 Del Method Room Air 04/20/23 10:20 Discharge Plan Discharge Patient Disposition: Home Condition: Stable Discharge Orders: Discharge Order (Routine); Ordered 04/20/23 Ordered By: Dony Garay Referrals: Dony Garay MD [Physician] - 6 Weeks (* Please call Dr. Garay's office first thing tomorrow morning to make your 6 week follow up appointment ) Discharge Diet: Usual diet Discharge Activity: Increase activity as tolerated Patient Instructions: Depression (DC), Bleeding (DC), Preeclampsia and Eclampsia After Delivery (GEN), OB Discharge Report, OB Food/Drug Interaction Guide, Opioid Safety, OB Home Care, OB Proud Parent Packet, OB Vaginal Deliveries - [facility] Discharge Attestations MENTALLY IMPAIRED TEACHER Time Spent in Discharge Care*: less than 30 min Coding Level of Care Code Acute Code for Chg Fwd Diagnoses Vaginal delivery O80 Time Spent (min) 20
--- NOTE | 2023-04-20 11:05 | PM.OBGYPN ---
REGISTERED NURSE SUPERVISOR Subjective Subjective: Interval history: no c/o no bleeding, pain eating, voiding, ambulating well caring for without any problems patient wants to go home Labor: Station: 0 Amniotic Membrane Status: Ruptured Monitor Mode: External Contraction Pattern: Irregular Status: Category I Vitals/I&O/Wt Last Vital Signs Temp 98.2 F 04/20/23 21:40 Pulse 78 04/20/23 21:40 Resp 16 04/20/23 21:40 BP 110/64 04/20/23 21:40 Pulse Ox 96 04/20/23 05:45 O2 Del Method Room Air 04/20/23 10:20 Physical Exam Narrative: afebrile, VS normal comfortable, awake, alert Abd: soft, nontender. fundus firm Ext: no edema; nontender Data 04/20/23 08:30 A&P Assessment and plan (1) Vaginal delivery: PPD #1 doing well discharge home today instructions and precautions given call/return if fever, chills, headache, blurry vision, nausea, vomiting, abdominal pain; vaginal bleeding or discharge; shortness of breath, chest pain, leg pains or swelling; inability to void, perineal pain or swelling; feelings of depression or mood changes; thoughts of suicide or harming others; inability to care for baby. f/u in 6 weeks or PRN Attestations Medical Necessity Statement*: patient s/p vaginal delivery, plan discharge home today Coding Level of Care Code Acute Code for Chg Fwd Diagnoses Vaginal delivery O80 Time Spent (min) 20
[2023-04-20 21:35] VITALS: BP 110/64; PULSE 78; RESP 16; TEMP 36.8
[2023-04-20 21:40] VITALS: BP 110/64; PULSE 78; RESP 16; TEMP 36.8
== END 2023-04-20 21:40 | disposition home or self-care (01) | DRG 807 ==
LOC: OBGYN 22:52 → OPOB 04-20 07:09 → OBGYN 04-20 07:11 → OPOB 04-20 07:12 → OBGYN 04-20 07:12
PROVIDERS: Admitting Provider Obstetrics & Gynecology; Visit Provider Obstetrics & Gynecology
DX: O36.5930 Maternal care for other known or suspected poor fetal growth, third trimester, not applicable or unspecified (principal); Z37.0 Single live birth; Z3A.38 38 weeks gestation of pregnancy; O99.334 Smoking (tobacco) complicating childbirth; F17.210 Nicotine dependence, cigarettes, uncomplicated
CPT/HCPCS: 36415; 59025; 59409; 80306; 85025; 85027; 96374; J2590; J3010; J7120; J7121